=== PATIENT | female | born 2005 | race African-American/Black ===

== ENCOUNTER 2024-12-17 10:12 | Emergency (ER) | payer OTHER, SELFPAY ==
[2024-12-17 10:14] VITALS: BP 178/95
[2024-12-17 11:34] VITALS: BMI 62.3
--- NOTE | 2024-12-17 11:42 | EDRN ---
Unable to see or feel any veins to attempt IV access. Pt voiding in BR at this time attempting urine spec. IV VAT RN paged at this time for IV access and labs.
[2024-12-17 12:08] LABS: % Basophils 0.7 % (0-2); % Eosinophils 0.6 % (0-6); % Immature Granulocytes 0.5 % (0-0.5); % Lymphocytes 17.5 % (20.5-51.1); % Monocytes 5.7 % (1.7-9.3); Absolute Basophils 0.1 10^3/uL (0-0.2); Absolute Eosinophils 0.1 10^3/uL (0-0.7); Absolute Lymphocytes 1.5 10^3/uL (1.2-3.4); Absolute Monocytes 0.5 10^3/uL (0.1-0.6); Absolute Neutrophils 6.2 10^3/uL (1.4-6.5); Hematocrit 35.5 % (37.0-47.0); Hemoglobin 11.2 g/dL (12.0-16.0); Mean Corp Hgb Conc. 31.5 g/dL (33.0-37.0); Mean Corpuscular Hgb 25.1 pg (27.0-31.0); Mean Corpuscular Volume 79.4 fL (81.0-99.0); Mean Platelet Volume 9.4 fL (7.4-10.4); Nucleated Red Blood Cells % 0 %; Platelet Count 270 10^3/uL (130-400); Red Blood Cell Count 4.47 10^6/uL (4.20-5.40); Red Cell Dist. Width 13.7 % (11.5-14.5); White Blood Cell Count 8.3 10^3/uL (4.8-10.8)
--- NOTE | 2024-12-17 12:18 | ED.GENMED ---
History of Present Illness
<Tomas More Jr., PA-C - Last Filed: 12/18/24 08:15>
General
Chief Complaint: Abdominal Pain
Source: patient
Exam Limitations: none
Time Seen by Provider: 12/17/24 11:01
Nursing documentation reviewed up to this point in time: agreed with
History of Present Illness
History of Present Illness:
19-year-old female presenting to the emergency department today with concerns of left lower quadrant abdominal pain pelvic pain starting last night ongoing today. No associated nausea vomiting. Had similar symptoms when she had an ovarian cyst in
the past. Denies any chest pain shortness of breath vaginal discharge bleeding urinary symptoms or changes in bowel movements.
Past History
<Tomas More Jr., PA-C - Last Filed: 12/18/24 08:15>
Past History
ED Past Medical History: None
ED Past Surgical History: None
Social History
Tobacco: Non-smoker
Alcohol: None
Drug: None
Personal: Single
Living: with family
Employment: Other
Family History
Family History: Other
Review of Systems
<ANTONIO Millan Jr. Last Filed: 12/18/24 08:15>
Review of Systems
Allergies reviewed?: Yes
All Other Systems: ROS reviewed and negative except as documented in HPI and ROS
Phy Exam
<ANTONIO Millan Jr. Last Filed: 12/18/24 08:15>
Physical Exam
Physical Exam:
GENERAL: Alert , in no apparent distress
EYE: pupils equal and reactive
NECK: Supple, no significant adenopathy.
ENT: o/p clr, mmm.
CARDIAC: Regular rate and rhythm .
LUNGS: Clear breath sounds bilaterally, no acute respiratory distress, no wheezes/rales/rhonchi
ABDOMEN: Pelvic examination with some mild discomfort to the left adnexa otherwise normal. Soft, without focal tenderness, no r/g, no cvat
NEUROLOGICAL: Alert and oriented, no focal neuro deficits
SKIN: Warm and dry, skin intact.
MUSCULOSKELETAL: No edema, well perfused.
PSYCH: Normal and appropriate interaction.
Course
<Tomas More Jr., ANTONIO - Last Filed: 12/18/24 08:15>
Orders/Labs/Results
Orders:
Orders
12/17/24 11:20
Test Result ONCE
US Pelvis W Transvag Combined Urgent
Reason For Exam: left pelvic pain
12/17/24 11:57
Complete Blood Count/With Diff Urgent
Comprehensive Metabolic Panel Urgent
HCG, Serum Qualitative Screen Urgent
12/17/24 12:06
Urinalysis Reflex To Culture Urgent
Specimen Description:
Date Specimen was Collected: 12/17/24
Time Specimen was Collected: 12:05
12/17/24 15:35
Ketorolac [Toradol] 15 mg IV NOW STA
Abnormal Lab Results
12/17/24
11:57
Hgb 11.2 L g/dL
(12.0-16.0)
Hct 35.5 L %
(37.0-47.0)
MCV 79.4 L fL
(81.0-99.0)
MCH 25.1 L pg
(27.0-31.0)
MCHC 31.5 L g/dL
(33.0-37.0)
Lymphocytes % 17.5 L %
(20.5-51.1)
AST 40 H U/L
(14-36)
12/17/24 11:57
12/17/24 11:57
Vital Signs
Initial and Last Documented VS:
Initial Vital Signs
Temp Pulse Resp BP Pulse Ox
98.5 F 115 16 178/95 100
12/17/24 10:14 12/17/24 10:14 12/17/24 10:14 12/17/24 10:14 12/17/24 10:14
Last Documented Vital Signs
Temp Pulse Resp BP Pulse Ox
98.5 F 76 18 138/88 100
12/17/24 10:14 12/17/24 21:04 12/17/24 21:04 12/17/24 21:04 12/17/24 21:04
<Ahsan Vázquez PA-C - Last Filed: 12/17/24 20:37>
Orders/Labs/Results
Orders:
Orders
12/17/24 11:20
Test Result ONCE
US Pelvis W Transvag Combined Urgent
Reason For Exam: left pelvic pain
12/17/24 11:57
Complete Blood Count/With Diff Urgent
Comprehensive Metabolic Panel Urgent
HCG, Serum Qualitative Screen Urgent
12/17/24 12:06
Urinalysis Reflex To Culture Urgent
Specimen Description:
Date Specimen was Collected: 12/17/24
Time Specimen was Collected: 12:05
12/17/24 15:35
Ketorolac [Toradol] 15 mg IV NOW STA
Abnormal Lab Results
12/17/24
11:57
Hgb 11.2 L g/dL
(12.0-16.0)
Hct 35.5 L %
(37.0-47.0)
MCV 79.4 L fL
(81.0-99.0)
MCH 25.1 L pg
(27.0-31.0)
MCHC 31.5 L g/dL
(33.0-37.0)
Lymphocytes % 17.5 L %
(20.5-51.1)
AST 40 H U/L
(14-36)
12/17/24 11:57
12/17/24 11:57
Vital Signs
Initial and Last Documented VS:
Initial Vital Signs
Temp Pulse Resp BP Pulse Ox
98.5 F 115 16 178/95 100
12/17/24 10:14 12/17/24 10:14 12/17/24 10:14 12/17/24 10:14 12/17/24 10:14
Last Documented Vital Signs
Temp Pulse Resp BP Pulse Ox
98.5 F 76 18 138/88 100
12/17/24 10:14 12/17/24 21:04 12/17/24 21:04 12/17/24 21:04 12/17/24 21:04
<Tomas More Jr., PA-C - Last Filed: 12/18/24 08:15>
MDM/Problems Addressed
MDM/Problems Addressed:
19-year-old female presenting to the emergency department with concerns of potential left-sided pelvic discomfort. No vaginal bleeding or discharge no reproducible pain throughout the abdomen. No nausea vomiting changes in bowel movements or
urinary symptoms. She does have a history of ovarian cysts plan for ultrasound to ensure no evidence of torsion. Care signed out pending ultrasound.
<Ahsan Vázquez PA-C - Last Filed: 12/17/24 20:37>
*Critical Care Note
Total Time (30-74mins, 75-104mins- exclusive of procedures): Not Applicable
<Ahsan Vázquez PA-C - Last Filed: 12/17/24 20:37>
Update Note
Update Note:
12/17/20242036 PM: Patient found on ultrasound to have a large cyst in the right adnexa of unclear etiology. Uncertain if this truly is the etiology to her pain. She appears quite comfortable and stable at this time. Recommend outpatient pelvic
MRI for further evaluation
ED Attending Note
<Tomas More Jr., PA-C - Last Filed: 12/18/24 08:15>
-
Portions of this chart may have been created with voice recognition software.� Occasional wrong word or��sound alike� substitutions may have occurred due to the inherent limitations of voice recognition software.
Discharge Plan
Departure
Patient Disposition: Home (Routine Discharge)
Date of Disposition: 12/17/24
Time of Disposition: 20:25
Patient with high blood pressure during this ER visit?: No
Condition: Good
Covid-19: Not Applicable
Discharge Problem:
Pelvic pain
Instructions: Ovarian Cyst (DC)
Prescriptions:
No Action
oxycodone-acetaminophen 5-325 mg Tablet
1 tab PO Q4HPRN PRN (Reason: mod-severe pain) Qty: 20 0RF
ibuprofen 800 mg tablet
800 mg PO Q8H PRN (Reason: Pain) Qty: 30 1RF
Referrals:
Michelle Le MD [Active] - Follow up in 5-7 days
UNKNOWN - PT DOES,NOT KNOW [Family Provider] -
Activity Restrictions/Additional Instructions:
You will need follow up with your primary doctor or [facility] for further evaluation of the large cyst on the right side of your uterus. It is not clear what this represents. There is nothing else that would suggest a cause of your pain.
Interventions
Interventions:
*Risk Screen - Suicide Last Done: 12/17/24 10:14
*General Assessment Last Done: 12/17/24 11:34
*Neglect/Abuse Screening Last Done: 12/17/24 10:14
ED- Fall Risk Assessment Last Done: 12/17/24 11:34
*ED COVID-19 Vaccine History Last Done: 12/17/24 11:34
*Nursing Disposition Last Done: 12/17/24 21:04
UP-Mswddu-Ltbqbewahe Assessment Last Done: 12/17/24 11:25
Discharge Date and Time
Discharge Date/Time: 12/17/24 21:06
Print Language: CANADIAN
[2024-12-17 12:20] LABS: HCG, Serum Qualitative Screen Negative
[2024-12-17 12:23] LABS: ALT (SGPT) 28 U/L (0-35); AST (SGOT) 40 U/L (14-36); Albumin 3.9 g/dl (3.5-5.0); Alkaline Phosphatase 65 U/L (38-126); Blood Urea Nitrogen 16 mg/dl (7-17); Calcium 9.1 mg/dl (8.4-10.2); Carbon Dioxide 25 mmol/L (22-30); Chloride 102 mmol/L (98-107); Estimated Creatinine Clearance > 125 ml/min; Glucose 88 mg/dl (70-99); Potassium 3.9 mmol/L (3.5-5.1); Sodium 137 mmol/L (135-145); Total Bilirubin 0.2 mg/dl (0.2-1.3); Total Protein 7.3 g/dl (6.3-8.2); eGFR > 60.00
[2024-12-17 12:24] LABS: Urine Albumin Negative (Neg - Trace); Urine Bilirubin Negative (Negative); Urine Character Clear (Clear); Urine Color Yellow; Urine Glucose Negative (Negative); Urine Ketone Negative (Negative); Urine Leukocyte Negative (Negative); Urine Nitrite Negative (Negative); Urine Occult Blood Negative (Negative); Urine Specific Gravity 1.015 (<1.030); Urine Urobilinogen Negative (Neg - 1+)
[2024-12-17 12:54] VITALS: BP 139/86
--- NOTE | 2024-12-17 13:15 | EDRN ---
Pt ambulated to RP at this time w/ Tamar FUENTES after Tamar received a verbal report.
[2024-12-17] MEDS: TORADOL 15 MG IV (15:51)
[2024-12-17 21:04] VITALS: BP 138/88
== END 2024-12-17 21:06 | disposition home or self-care (01) ==
LOC: EMR 10:12
PROVIDERS: Physician Assistant; EMERGENCY PHYSICIAN Student in an Organized Health Care Education/Training Program
DX: R10.2 Pelvic and perineal pain (principal)
CPT/HCPCS: 99284; 96374; 76830; 76856; 80053; 81003; 84703; 85025

== ENCOUNTER → 2025-01-01 09:57 | Outpatient (REF) | payer OTHER, SELFPAY | LOC: MRI 09:57 | PROVIDERS: ATTENDING PHYSICIAN Obstetrics & Gynecology Gynecology; FAMILY PHYSICIAN Physician Assistant Medical | DX: N94.89 Other specified conditions associated with female genital organs and menstrual cycle (principal) | CPT/HCPCS: 72197; A9575 ==